=== PATIENT | male | born 1965 | race Caucasian/White ===

== ENCOUNTER 2022-12-28 22:12 | Emergency (ER) | payer OTHER ==
[~2022-12-28] VITALS: Ht 175.3 cm; Wt 72.6 kg
[2022-12-28] MEDS ORDERED: VALA500T34 PO (22:54)
[2022-12-28] MEDS ORDERED: HYDR-4209 PO (22:54)
--- NOTE | 2022-12-28 23:02 | NUR ---
Patient discharged to home in stable condition. Written and verbal after care instructions given. Patient verbalizes understanding of instructions. Stressed follow up or return to ER for worsening s/s. Patient walked out accompained by son.
== END 2022-12-28 23:01 | disposition home or self-care (01) ==
LOC: ER 22:12
DX: B02.9 Zoster without complications (principal); R03.0 Elevated blood-pressure reading, without diagnosis of hypertension
CPT/HCPCS: A4663